=== PATIENT | female | born 1960 | race Caucasian/White ===

== ENCOUNTER 2017-10-27 09:12 | Day surgery (SDC) | payer BC, SELFPAY ==
[2017-10-18 16:13] VITALS: BMI 33.5
[2017-10-27] VITALS (7 sets, daily range): BP systolic 112–130; BP diastolic 71–78; PULSE 45–60; RESP 12–17; TEMP 36.1–36.8; O2SAT 97–98; BMI 33.3
--- NOTE | 2017-10-27 | PATH_ITS ---
[facility] Accession Number: [id number] . 01 Material submitted: . ENDOMETRIAL CURRETTINGS . 02 Diagnosis: Endometrium, Biopsy: Proliferative endometrium with features of glandular and stromal breakdown. Scant endocervical mucosa. No evidence of neoplasia or hyperplasia. JRL/10/30/2017 . 02 Electronically signed: . Michelle Davis MD, Pathologist NPI- [id number] . 01 Gross description: . Received one formalin-filled container labeled with the patient's name and labeled endometrial curettage. The specimen consists of approximately a 25 cc aggregate of tissue, mucoid material, and blood, which is filtered, wrapped, and entirely submitted in one cassette. ([id number]) /FRR . 02 Pathologist provided ICD-10: N95.0 . 02 CPT . 664819 Performed at: 01 [facility] [address] [place] [id number] MD Kye Payne MD Phone: [phone] Performed at: 02 [facility] [address] [place], [place] [id number] MD Ulises Elkins MD Phone: [phone]
[2017-10-27] MEDS: LACTATED RINGERS 1,000 ML 42 ML IV (09:33)
--- NOTE | 2017-10-27 10:27 | PM.PREOP ---
Pre-operative Note Interval Note Pre-op Check: Yes History & Physical exam performed today by Physician Changes: No
--- NOTE | 2017-10-27 11:08 | SUR.OPER ---
Lithotomy on padded OR bed, head on pillow, arms secured on padded arm boards at <90 degrees abduction. Legs secured in padded yellow fins stirrups.
[2017-10-27] MEDS: OXYCODONE/ACETAMINOPHEN 5/325 TABLET 1 TAB PO (11:28)
--- NOTE | 2017-10-27 14:31 | SUR.PHASEII ---
Pt ambulated to the bathroom, sba. + void.
--- NOTE | 2017-12-28 14:41 | PM.GYNOP.1 ---
Operative Date/Time/Diagnoses Date of procedure: 10/27/17 Time of procedure: 11:45 Pre-op diagnosis: Menorrhagia Post-op diagnosis: same Procedure: Procedures Operation Date: 10/27/17 10:15 Actual Procedures Side Surgeon p D&C Hysteroscopy w/ Endometrial Ablation Emma High MD Indications: Menorrhagia Surgeon: Emma High Anesthesia Type: General (LMA) Operative Notes Findings: 8 week size anteverted uterus Both fallopian tube ostia observed Closure Type: not applicable Specimen(s): endometrial curettings Applied: catheter (In and out) Estimated blood loss (mL): 10 Blood products transfused: none Procedure in detail: After informed consent was obtained, the patient was taken to the operating room where she was placed in the dorsal supine position. After adequate LMA general anesthesia was achieved, she was placed in the dorsal lithotomy position, and prepped and draped in the usual sterile fashion. A bivalve speculum was placed into the vagina, and the anterior lip of the cervix grasped with a single-tooth tenaculum. Cervical os was sequentially dilated to 7. Hegar dilator. The hysteroscope passed easily into the endometrial cavity. Both fallopian tube ostia were observed. The hysteroscope was removed. Sharp curettage was performed yielding moderate amount of tissue. The uterus was measured from the internal os to the fundus and measured 4.5 cm. This was set on the NovaSure catheter and the generator. The NovaSure catheter passed easily into the endometrial cavity. The catheter was opened. The width was 4.2 cm. This was also set on the generator. The cervix was capped. The cavity assessment was performed and passed. The cycle was initiated and lasted 78 sec. The catheter was closed. The cervix was then capped. Catheter was removed from the uterus. The single-tooth tenaculum was removed from the anterior lip of the cervix. The bivalve speculum was removed from the vagina. Sponge, lap, and instrument counts were correct x2. The patient tolerated the procedure well, was taken to PACU in stable condition. Complications: none Post-operative Condition: stable Disposition: PACU Plan for aftercare: Home after recovery
== END 2017-10-27 13:00 | disposition home or self-care (01) ==
PROVIDERS: Visit Provider Obstetrics & Gynecology
PROC: 0U5B8ZZ Destruction of Endometrium, Via Natural or Artificial Opening Endoscopic (ICD-10-PCS; CPT 58563; principal; 2017-10-27 10:15)
DX: N95.0 Postmenopausal bleeding (principal); Z87.891 Personal history of nicotine dependence
CPT/HCPCS: 58563; J1885; J2405; J2704; J3010